=== PATIENT | male | born 1995 | race Two or more races ===

== ENCOUNTER 2017-12-08 13:45 | Emergency (ER) | payer OTHER ==
--- NOTE | 2017-12-08 14:01 | ED Physician Documentation ---
PD HPI SKIN - Stated complaint Stated Complaint: LEG PX/SKIN REDNESS - Chief complaint Chief Complaint: General - History obtained from History obtained from: Patient - History of Present Illness Timing - onset: How many weeks ago (he has had pain in right low back for couple of weeks, radiating down lateral right leg to foot. No weakness in leg. Has some feeling of tingling lateral foot and lower leg. No noted injury. Also has had itchy rash on neck, wrists, antecub areas c/w eczema the past few days.) Timing - details: Gradual onset Location: Bodywide (rash is diffuse. Not in area of back pain.) Quality / character: Itchy, Discolored (red) Associated symptoms: No: Fever, Myalgias, Joint pain, N/V/D Similar symptoms before: Diagnosis (has had episodic eczema since teens, treated with steroids PRN. Uses Cetaphil skin lotion. Has not had low back pain problems in the past.) Recently seen: Clinic ([facility] for [facility] back and Rx with Iburpofe, without iimprovement the past week.) Review of Systems Constitutional: denies: Fever, Chills, Myalgias Nose: denies: Rhinorrhea / runny nose, Congestion Throat: denies: Sore throat Respiratory: denies: Cough GI: denies: Vomiting, Diarrhea Skin: reports: Rash (for few days). denies: Abrasion (s), Laceration (s) Musculoskeletal: reports: Back pain (right low back, radiating down right lateral leg.) Neurologic: reports: Numbness. denies: Focal weakness, Difficulty speaking PD PAST MEDICAL HISTORY - Past Medical History Cardiovascular: None Respiratory: None Neuro: None Endocrine/Autoimmune: None Derm: Eczema - Present Medications Home Medications: Ambulatory Orders Medication Instructions Recorded Confirmed Cetirizine [ZyrTEC] 10 mg PO DAILY #20 tablet 12/08/17 Dexamethasone [Decadron] 4 mg PO DAILY #14 tablet 12/08/17 Methocarbamol [Robaxin] 500 mg PO Q6H PRN #25 tablet 12/08/17 Tramadol HCl 50 mg PO Q6H PRN #20 tablet 12/08/17 - Allergies Allergies/Adverse Reactions: Allergies Allergy/AdvReac Type Severity Reaction Status Date / Time No Known Drug Allergies Allergy Verified 12/08/17 13:55 PD ED PE NORMAL - Vitals Vital signs reviewed: Yes - General General: Alert and oriented X 3, No acute distress, Well developed/nourished - HEENT HEENT: Pharynx benign - Neck Neck: Supple, no meningeal sign, No adenopathy - Cardiac Cardiac: RRR, No murmur - Respiratory Respiratory: Clear bilaterally - Abdomen Abdomen: Soft, Non tender - Back Back: No spinal TTP (there is focal tenderness right lateral lumbar area in muscle, which does elicit pain to the right leg, c/w trigger point in muscle. ) - Derm Derm: Warm and dry, Other (neck, antecub areas, wrists with main area of redness and itching, slightly thickened skin. No blistering. No rash in low back. ) - Extremities Extremities: No edema, No calf tenderness / cord - Neuro Neuro: No motor deficit, No sensory deficit (can feel touch at feet and leg. ), Normal speech, Other (normal reflexes at knees) Results - Vitals Vitals: Vital Signs - 24 hr 12/08/17 13:51 Temperature 36.4 C L Heart Rate 72 Respiratory 16 Rate Blood Pressure 122/78 O2 Saturation 99 Oxygen O2 Source Room air PD MEDICAL DECISION MAKING - ED course Complexity details: considered differential (skin rash c/w his recurrent eczema. The back pain with radiation c/w sciatica. But does not have weakness nor reflex abnormality. Trigger point injection with lido/Kenalog done at lumbar muscle tenderness. ), d/w patient - Sepsis Event Vital Signs: Vital Signs - 24 hr 12/08/17 13:51 Temperature 36.4 C L Heart Rate 72 Respiratory 16 Rate Blood Pressure 122/78 O2 Saturation 99 Oxygen O2 Source Room air Departure - Departure Disposition: 01 Home, Self Care Clinical Impression: Right sided sciatica Eczema Qualifiers: Eczema type: unspecified Qualified Code(s): L30.9 - Dermatitis, unspecified Condition: Stable Record reviewed to determine appropriate education?: Yes Instructions: ED Dermatitis Atopic Eczema, ED Sciatica Follow-Up: [facility] [Provider Group] Prescriptions: Cetirizine [ZyrTEC] 10 mg PO DAILY #20 tablet Dexamethasone [Decadron] 4 mg PO DAILY #14 tablet Methocarbamol [Robaxin] 500 mg PO Q6H PRN #25 tablet PRN Reason: Spasms Tramadol HCl 50 mg PO Q6H PRN #20 tablet PRN Reason: Pain Comments: Decadron steroid for the next 1-2 weeks to benefit both the eczema as well as trying to help on the sciatic nerve irritation. Cetirizine antihistamine daily to help with the eczema. Robaxin muscle relaxant 3-4 times a day for stiffness in the back. Add Tylenol or tramadol if needed for pain. Follow-up with your primary care in the next several days, call for an appointment. They may want to institute some physical therapy to help with the back nerve root irritation.
[2017-12-08] MEDS ORDERED: TRIAMCINOLONE 40 MG/ML VIAL IM STA (14:15)
[2017-12-08] MEDS ORDERED: DEXAMETHASONE 10 MG/ML VIAL PO STA (14:15)
[2017-12-08] MEDS ORDERED: CETIRIZINE 10 MG TABLET PO STA (14:16)
[2017-12-08] MEDS ORDERED: CHERRY SYRUP 10 ML UDC PO ONE (14:24)
[2017-12-08 14:44] VITALS: BP 117/69
== END 2017-12-08 14:50 | disposition home or self-care (01) ==
LOC: ED 13:45
DX: M54.31 Sciatica, right side (principal); L30.9 Dermatitis, unspecified
CPT/HCPCS: 20552; 99283; A9270

== ENCOUNTER 2018-02-03 10:44 | Emergency (ER) | payer OTHER ==
[2018-02-03 10:50] VITALS: BP 146/77
--- NOTE | 2018-02-03 12:21 | ED Physician Documentation ---
History of Present Illness - Stated complaint Stated Complaint: FACE SWELLING/RASH - Chief complaint Chief Complaint: General - History obtained from History obtained from: Patient - History of Present Illness Timing: Other (He has a history of eczema. He has a flare on the face and neck for the last 2 weeks. He is already been on oral steroids twice in the last 2 months.) Review of Systems Constitutional: denies: Fever, Chills Cardiac: denies: Chest pain / pressure, Palpitations Respiratory: denies: Dyspnea, Cough PD PAST MEDICAL HISTORY - Past Medical History Cardiovascular: None Respiratory: None Neuro: None Endocrine/Autoimmune: None GI: None HEENT: None Psych: None Musculoskeletal: None Derm: Eczema - Past Surgical History Past Surgical History: No - Present Medications Home Medications: Ambulatory Orders Medication Instructions Recorded Confirmed Hydrocortisone 1% Oint 1 gm TP BID #2 oint...g. 02/03/18 [Hydrocortisone] Loratadine [Claritin] 10 mg PO 02/03/18 Triamcinolone 0.1% Oint [Kenalog 1 gm TOP BID #2 tube 02/03/18 0.1% Oint] - Allergies Allergies/Adverse Reactions: Allergies Allergy/AdvReac Type Severity Reaction Status Date / Time No Known Drug Allergies Allergy Verified 02/03/18 10:50 - Social History Does the pt smoke?: No Smoking Status: Never smoker Does the pt drink ETOH?: No Does the pt have substance abuse?: No - Immunizations Immunizations are current?: Yes - POLST Patient has POLST: No PD ED PE NORMAL - Vitals Vital signs reviewed: Yes - General General: Alert and oriented X 3, No acute distress - HEENT HEENT: PERRL, EOMI - Neck Neck: Supple, no meningeal sign, No bony TTP - Extremities Extremities: Other (He has slightly weepy eczema on the anterior neck and less so on the face) - Neuro Neuro: Alert and oriented X 3, Normal speech Results - Vitals Vitals: Vital Signs - 24 hr 02/03/18 10:47 Temperature 36.8 C Heart Rate 103 H Respiratory 18 Rate Blood Pressure 146/77 H O2 Saturation 98 Oxygen O2 Source Room air PD MEDICAL DECISION MAKING - ED course ED course: I discussed with him that we probably do not want to do oral steroids again as he is already been on Oral steroids twice in the last 2 months. Departure - Departure Disposition: 01 Home, Self Care Clinical Impression: Eczema Qualifiers: Eczema type: flexural Qualified Code(s): L20.82 - Flexural eczema Condition: Good Record reviewed to determine appropriate education?: Yes Instructions: ED Dermatitis Atopic Eczema Prescriptions: Hydrocortisone 1% Oint [Hydrocortisone] 1 gm TP BID #2 oint...g. Triamcinolone 0.1% Oint [Kenalog 0.1% Oint] 1 gm TOP BID #2 tube Comments: You can use the triamcinolone on the neck, and the hydrocortisone on the face. Do not put the triamcinolone on your face. Follow-up with your doctor. Your blood pressure was elevated today on check into the emergency department. This does not mean that you have hypertension, it is a common phenomenon to come to the emergency department and have elevated blood pressure. I recommend that you see your primary care physician within the week to have it rechecked when you are feeling better.
== END 2018-02-03 12:31 | disposition home or self-care (01) ==
LOC: ED 10:44
DX: L20.82 Flexural eczema (principal); R03.0 Elevated blood-pressure reading, without diagnosis of hypertension
CPT/HCPCS: 99283